=== PATIENT | female | born 1990 | race Two or more races ===

== ENCOUNTER 2025-01-23 20:31 | Emergency (ER) | payer OTHER ==
[~2025-01-23] VITALS: Ht 157.5 cm; Wt 122.5 kg
[2025-01-23] MEDS ORDERED: KETOROLAC TROMETHAMINE 30 MG VIAL IM STA (21:40)
[2025-01-23] MEDS ORDERED: KETOROLAC TROMETHAMINE 30 MG VIAL ONE (21:50)
== END 2025-01-23 22:53 | disposition home or self-care (01) ==
LOC: ER 20:32
DX: M25.571 Pain in right ankle and joints of right foot (principal)